=== PATIENT | female | born 1995 | race Caucasian/White ===

== ENCOUNTER 2016-06-26 12:34 | Emergency (ER) | payer MEDICAID, OTHER ==
[2016-06-26] MEDS ORDERED: LACTATED RINGERS 1,000 ML ONE (13:31)
[2016-06-26] MEDS ORDERED: ONDANSETRON 4 MG/2ML 2 ML VIAL ONE (13:31)
[2016-06-26 13:46] LABS: ABSOLUTE NEUTROPHIL COUNT 12.1 K/mm3 (1.8-7.7); BASO % 0.3 % (0.2-1.0); EOS % 0.1 % (0.9-2.9); HEMATOCRIT 38.9 % (37.0-47.0); HEMOGLOBIN 13.1 gm/l (12.0-16.0); IMM NEUT # 0.2 K/mm3 (0-0.2); IMM NEUT% 1.4 % (0-1); LYMPH # 0.8 (1.0-4.8); LYMPH % 5.7 % (15-45); MEAN CELL VOLUME 84.4 fl (81.0-99.0); MEAN CORPUSCULAR HEMOGLOBIN 28.4 pg (27.0-31.0); MEAN CORPUSCULAR HGB CONC 33.7 g/dl (33.0-37.0); MEAN PLATELET VOLUME 10.5 fl (7.4-10.4); MONO # 1.5 (0.0-0.8); MONO % 9.9 % (4-12); NEUT % 82.6 % (43-75); PLATELET COUNT 221 K/mm3 (130-400); RED CELL DISTRIBUTION WIDTH 15.3 % (11.5-14.5)
[2016-06-26 14:15] LABS: ALBUMIN 4.1 gm/dL (3.5-5.7); CALCIUM 9.8 mg/dL (8.6-10.3); MAGNESIUM 1.8 mg/dL (1.9-2.7)
[2016-06-26 14:19] LABS: URINE BILIRUBIN 1+ (NEGATIVE); URINE BLOOD 3+ (NEGATIVE); URINE GLUCOSE (UA) NEGATIVE (NEGATIVE); URINE LEUKOCYTE ESTERASE 2+ (NEGATIVE); URINE NITRITE POSITIVE (NEGATIVE); URINE PROTEIN 3+ (NEGATIVE)
[2016-06-26 14:20] LABS: URINE APPEARANCE HAZY; URINE COLOR AMBER; URINE UROBILINOGEN 4 mg/dL (0-1 mg/dl)
[2016-06-26 14:21] LABS: HCG,QUALITATIVE URINE NEGATIVE
[2016-06-26 14:35] LABS: URINE WBC 60-80 /hpf
[2016-06-26 14:36] LABS: URINE BACTERIA 3+
[2016-06-26] MEDS ORDERED: SODIUM CHLORIDE 0.9% 100 ML IV ONE (14:44)
[2016-06-26] MEDS ORDERED: CEFTRIAXONE SODIUM 1 G VIAL ONE (14:44)
[2016-06-26] MEDS ORDERED: MORPHINE SULFATE 4 MG/ML SYRINGE ONE (16:00)
== END 2016-06-26 16:30 | disposition home or self-care (01) ==
LOC: ED 12:34
DX: N12 Tubulo-interstitial nephritis, not specified as acute or chronic (principal); F17.210 Nicotine dependence, cigarettes, uncomplicated
CPT/HCPCS: 83690; 81025; 85025; 87086; 80053; 87186; 83735; 81001; 96375 ×2; 99284 ×2; 96361; 96365; J2270; J0696; J2405; J7120; J7050

== ENCOUNTER 2016-07-17 14:08 | Emergency (ER) | payer MEDICAID ==
[2016-07-17] MEDS ORDERED: IOPAMIDOL 370 (76%) IV.SOLN 150 ML IV ONE (14:09)
[2016-07-17] MEDS ORDERED: ONDANSETRON 4 MG/2ML 2 ML VIAL ONE ×2 (14:47→16:55)
[2016-07-17] MEDS ORDERED: KETOROLAC TROMETHAMINE 15 MG/ML VIAL ONE (14:48)
[2016-07-17] MEDS ORDERED: SODIUM CHLORIDE 0.9% 2,000 ML ONE (14:48)
[2016-07-17 15:12] LABS: ABSOLUTE NEUTROPHIL COUNT 3.8 K/mm3 (1.8-7.7); BASO % 0.2 % (0.2-1.0); HEMATOCRIT 39.9 % (37.0-47.0); HEMOGLOBIN 13.4 gm/l (12.0-16.0); IMM NEUT% 0.6 % (0-1); LYMPH % 19.2 % (15-45); MEAN CELL VOLUME 86.7 fl (81.0-99.0); MEAN CORPUSCULAR HEMOGLOBIN 29.1 pg (27.0-31.0); MEAN CORPUSCULAR HGB CONC 33.6 g/dl (33.0-37.0); MEAN PLATELET VOLUME 9.9 fl (7.4-10.4); MONO # 0.5 (0.0-0.8); MONO % 9.1 % (4-12); NEUT % 70.9 % (43-75); PLATELET COUNT 186 K/mm3 (130-400); RED CELL DISTRIBUTION WIDTH 15.6 % (11.5-14.5)
[2016-07-17 15:26] LABS: ALB/GLOB RATIO 1.3 (>1.0); ALBUMIN 4.5 gm/dL (3.5-5.7); CALCIUM 10.1 mg/dL (8.6-10.3)
--- NOTE | 2016-07-17 16:04 | US ---
ABDOMINAL-LIMITED COMPARISON: None HISTORY: Epigastric pain radiating to the back. FINDINGS: Gall bladder: Normal, length 6.1 cm. Wall thickness 1.6 mm. No stones or sludge. Common hepatic duct: Normal diameter 1.6 mm. Common bile duct: Normal diameter 5.1 mm. IMPRESSION: 1. Normal gallbladder and bile ducts. Report was sent to the emergency department electronic medical record system, 07/17/2016 at 16:01
[2016-07-17] MEDS ORDERED: MORPHINE SULFATE 4 MG/ML SYRINGE ONE (16:05)
[2016-07-17 16:51] LABS: URINE BILIRUBIN 1+ (NEGATIVE); URINE BLOOD 4+ (NEGATIVE); URINE GLUCOSE (UA) NEGATIVE (NEGATIVE); URINE LEUKOCYTE ESTERASE 2+ (NEGATIVE); URINE NITRITE POSITIVE (NEGATIVE); URINE PROTEIN 2+ (NEGATIVE)
[2016-07-17 17:00] LABS: URINE APPEARANCE CLOUDY; URINE COLOR YELLOW; URINE UROBILINOGEN 4 mg/dL (0-1 mg/dl)
--- NOTE | 2016-07-17 17:06 | CT ---
ABD/PELVIS W/ CON COMPARISON: Abdominal ultrasound, 07/17/2016. HISTORY: Abdominal pain. Recurrent pancreatitis. Elevated lipase. Technique: No oral contrast. Intravenous injection 100 mL Isovue 370. Using a [employer] Aquilion [address] scanner, images were obtained from the diaphragm to the floor the pelvis. An automated dose reduction technique was used to minimize patient radiation dose. Dose information: CTDIvol (mGy): 4.70 DLP(mGycm): 239.60 FINDINGS: Lung bases: Normal. Inferior mediastinum and heart: Normal. Liver: Low-attenuation. Gallbladder:Normal. Bile ducts: Normal. Pancreas: Normal enhancement. No edema. No mass or cyst. No calcifications. Spleen: Normal. Adrenal glands: Normal. Kidneys: Irregular enhancement in the lower pole left kidney. Ureters: Normal Urinary bladder: Normal. Uterus and adnexa: Normal. Blood vessels: Normal Lymph nodes: Normal Stomach: Normal Duodenum: Normal Small intestine: Normal Appendix: Normal Colon: Normal Abdominal wall and supporting musculature: Normal Bones: Normal IMPRESSION: 1. Normal appearance of the pancreas. No CT evidence of acute pancreatitis. 2. Evidence of pyelonephritis in the lower pole the left kidney. Report was sent to the emergency department electronic medical record systems 07/17/2016 at 17:08
[2016-07-17 17:07] LABS: URINE AMORPHOUS SEDIMENT FEW; URINE MUCUS 3+; URINE WBC 20-30 /hpf
[2016-07-17 17:08] LABS: URINE BACTERIA 2+
[2016-07-17] MEDS ORDERED: CEFTRIAXONE 1 GRAM DUPLEX 50 ML IV ONE (17:25)
[2016-07-17] MEDS ORDERED: SODIUM CHLORIDE 0.9% 1,000 ML ONE (17:25)
[2016-07-17 17:59] LABS: URINE BILIRUBIN NEGATIVE (NEGATIVE); URINE BLOOD 1+ (NEGATIVE); URINE GLUCOSE (UA) NEGATIVE (NEGATIVE); URINE LEUKOCYTE ESTERASE TRACE (NEGATIVE); URINE NITRITE POSITIVE (NEGATIVE); URINE PROTEIN 2+ (NEGATIVE); URINE UROBILINOGEN 1 mg/dL (0-1 mg/dl)
[2016-07-17 18:09] LABS: URINE COLOR YELLOW
[2016-07-17 18:10] LABS: URINE APPEARANCE SL CLOUDY
[2016-07-17 18:24] LABS: URINE RBC 0-2 /hpf; URINE WBC 0-2 /hpf
[2016-07-17 18:25] LABS: URINE BACTERIA 2+; URINE EPITHELIAL CELLS 0 /hpf
== END 2016-07-17 18:52 | disposition home or self-care (01) ==
LOC: ED 14:08
DX: N12 Tubulo-interstitial nephritis, not specified as acute or chronic (principal); Z87.891 Personal history of nicotine dependence
CPT/HCPCS: 83605; 83690; 82150; 84703; 85025; 87040; 87086; 80053; 87186; 81001 ×2; 74177; 76705; 96375 ×3; 96376; 99284 ×2; 96361; 96365; J2270; J1885; J2405 ×2; J7030 ×2; Q9967; J0696

== ENCOUNTER 2016-08-03 19:29 | Inpatient (IN) | payer MEDICAID ==
[2016-08-03] MEDS ORDERED: LACTATED RINGERS 1,000 ML ONE ×2 (19:42→20:57)
[2016-08-03 20:19] LABS: SPECIFIC GRAVITY 1.015 (1.001-1.030); URINE BILIRUBIN NEGATIVE (NEGATIVE); URINE BLOOD NEGATIVE (NEGATIVE); URINE GLUCOSE (UA) NEGATIVE (NEGATIVE); URINE LEUKOCYTE ESTERASE TRACE (NEGATIVE); URINE NITRITE NEGATIVE (NEGATIVE); URINE PROTEIN 2+ (NEGATIVE); URINE UROBILINOGEN NORMAL (0-1 mg/dl)
[2016-08-03 20:20] LABS: ABSOLUTE NEUTROPHIL COUNT 13.1 K/mm3 (1.8-7.7); BASO % 0.2 % (0.2-1.0); EOS % 0.3 % (0.9-2.9); HEMATOCRIT 45.7 % (37.0-47.0); HEMOGLOBIN 15.3 gm/l (12.0-16.0); IMM NEUT # 0.1 K/mm3 (0-0.2); IMM NEUT% 0.6 % (0-1); LYMPH # 2.1 (1.0-4.8); LYMPH % 13.3 % (15-45); MEAN CELL VOLUME 90.3 fl (81.0-99.0); MEAN CORPUSCULAR HEMOGLOBIN 30.2 pg (27.0-31.0); MEAN CORPUSCULAR HGB CONC 33.5 g/dl (33.0-37.0); MEAN PLATELET VOLUME 9.6 fl (7.4-10.4); MONO # 0.4 (0.0-0.8); MONO % 2.2 % (4-12); NEUT % 83.4 % (43-75); PLATELET COUNT 352 K/mm3 (130-400); RED CELL DISTRIBUTION WIDTH 15.6 % (11.5-14.5); URINE APPEARANCE HAZY; URINE COLOR YELLOW
[2016-08-03] MEDS ORDERED: ONDANSETRON 4 MG/2ML 2 ML VIAL ONE (20:21)
[2016-08-03] MEDS ORDERED: PANTOPRAZOLE SODIUM 40 MG VIAL IV ONE (20:22)
[2016-08-03] MEDS ORDERED: KETOROLAC TROMETHAMINE 15 MG/ML VIAL ONE (20:22)
[2016-08-03 20:26] LABS: URINE RBC 0-1 /hpf
[2016-08-03 20:27] LABS: URINE AMORPHOUS SEDIMENT 2+
[2016-08-03 20:28] LABS: URINE BACTERIA 2+; URINE EPITHELIAL CELLS FEW /hpf
[2016-08-03 20:35] LABS: ALB/GLOB RATIO 1.4 (>1.0); ALBUMIN 4.5 gm/dL (3.5-5.7); CALCIUM 9.8 mg/dL (8.6-10.3)
[2016-08-03 20:42] LABS: AMPHETAMINES/METHAMPHETAMINES NEGATIVE (NEGATIVE); COCAINE NEGATIVE (NEGATIVE); MARIJUANA NEGATIVE (NEGATIVE); METHADONE NEGATIVE (NEGATIVE); OPIATES NEGATIVE (NEGATIVE); TRICYCLIC ANTIDEPRESSANTS NEGATIVE (NEGATIVE)
[2016-08-03] MEDS ORDERED: METOCLOPRAMIDE HCL 5 MG/ML 2ML VIAL ONE (21:14)
[2016-08-03] MEDS ORDERED: DIPHENHYDRAMINE HCL 50 MG/1 ML VIAL ONE (21:14)
[2016-08-03] MEDS ORDERED: CEFTRIAXONE 1 GRAM DUPLEX 50 ML IV ONE (21:14)
[2016-08-03] MEDS ORDERED: MORPHINE SULFATE 4 MG/ML SYRINGE ONE (21:20)
[2016-08-03] MEDS ORDERED: MENTHOL/CETYLPYRD 1 EACH LOZENGE PO PRN (22:23)
[2016-08-03] MEDS ORDERED: LACTATED RINGERS 1,000 ML IV SCH (22:23)
[2016-08-03] MEDS ORDERED: POTASSIUM CHLORIDE 40 MEQ in SODIUM CHLORIDE 0.9% 500 ML IV ONE (22:23)
[2016-08-03] MEDS ORDERED: MAGNESIUM HYDROXIDE 30 ML UDCUP PO PRN (22:23)
[2016-08-03] MEDS ORDERED: BISACODYL 10 MG SUP PR PRN (22:23)
[2016-08-03] MEDS ORDERED: BLISTEX LIPSTICK 1 EACH TP PRN (22:23)
[2016-08-03] MEDS ORDERED: BISACODYL 5 MG TABLET.EC PO PRN (22:23)
[2016-08-03] MEDS ORDERED: SODIUM CHLORIDE 0.9% 100 ML IV PRN (22:23)
[2016-08-03] MEDS ORDERED: PUMP TUBING ONE (22:26)
[2016-08-03] MEDS ORDERED: KCL ONE (22:28)
[2016-08-03] MEDS ORDERED: SODIUM CHLOR 0.9% ONE (22:28)
[2016-08-03 22:40] VITALS: BMI 22.1
[2016-08-03] MEDS ORDERED: HYDROMORPHONE HCL 0.5 MG/0.5 ML SYRINGE ONE (23:05)
[2016-08-03] MEDS: ONDANSETRON 4 MG/2ML 2 ML VIAL IV PRN (23:08)
[2016-08-03] MEDS: NS/Potassium Chlor 20 mEq 1,000 ML IV SCH (23:09)
[2016-08-03] MEDS: HYDROMORPHONE HCL 2 MG/ML SYRINGE IV PRN (23:17)
[2016-08-03] MEDS ORDERED: PROMETHAZINE HCL 25 MG/ML VIAL ONE (23:26)
[2016-08-03] MEDS ORDERED: SODIUM CHLORIDE 0.9% 50 ML IV ONE (23:27)
[2016-08-03] MEDS: ENOXAPARIN SODIUM 40 MG/0.4 ML SYRINGE SUB-Q SCH (23:30)
[2016-08-04] MEDS: HYDROMORPHONE HCL 2 MG/ML SYRINGE IV PRN ×3 (00:35→07:43)
[2016-08-04] MEDS ORDERED: LORAZEPAM 2 MG/ML 1ML SDV IV PRN (00:51)
[2016-08-04] MEDS: PANTOPRAZOLE SODIUM 40 MG VIAL IV SCH ×2 (01:30→22:33)
[2016-08-04] MEDS: PROMETHAZINE HCL 12.5 MG in SODIUM CHLORIDE 0.9% 50 ML IM PRN (02:43)
[2016-08-04] MEDS: NS/Potassium Chlor 20 mEq 1,000 ML IV SCH (03:26)
[2016-08-04] MEDS: ONDANSETRON 4 MG/2ML 2 ML VIAL IV PRN (04:35)
[2016-08-04 05:23] LABS: ABSOLUTE NEUTROPHIL COUNT 15.7 K/mm3 (1.8-7.7); BASO % 0.1 % (0.2-1.0); HEMATOCRIT 38.6 % (37.0-47.0); HEMOGLOBIN 12.9 gm/l (12.0-16.0); IMM NEUT # 0.1 K/mm3 (0-0.2); IMM NEUT% 0.4 % (0-1); LYMPH # 0.7 (1.0-4.8); LYMPH % 4.2 % (15-45); MEAN CELL VOLUME 91.5 fl (81.0-99.0); MEAN CORPUSCULAR HEMOGLOBIN 30.6 pg (27.0-31.0); MEAN CORPUSCULAR HGB CONC 33.4 g/dl (33.0-37.0); MEAN PLATELET VOLUME 9.6 fl (7.4-10.4); MONO # 0.3 (0.0-0.8); MONO % 1.8 % (4-12); NEUT % 93.5 % (43-75); PLATELET COUNT 215 K/mm3 (130-400); RED CELL DISTRIBUTION WIDTH 15.6 % (11.5-14.5)
[2016-08-04 05:47] LABS: ALB/GLOB RATIO 1.4 (>1.0); ALBUMIN 3.3 gm/dL (3.5-5.7); CALCIUM 8.4 mg/dL (8.6-10.3)
[2016-08-04] MEDS: SODIUM CHLORIDE 0.9% 1,000 ML IV SCH ×5 (06:21→22:45)
[2016-08-04 06:58] LABS: BAND 9 % (0-10); BASOPHIL 0 % (0-1); EOSINOPHIL 0 % (1-3); LYMPHOCYTE 2 % (15-45); MONOCYTE 0 % (4-12); NEUTROPHILS 89 % (43-75); PLATELET ESTIMATE NORMAL (NORMAL); TOTAL CELLS COUNTED 100
--- NOTE | 2016-08-04 08:56 | HP ---
Jailene Kebede [id number] DATE OF ADMISSION: 08/03/2016 CHIEF COMPLAINT: Abdominal pain. 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 She has partially treated the infection twice now, but states she did not get the antibiotic filled because she could not afford it. She reports that in the last week she has developed in addition to her persistent flank pain epigastric pain which has gotten progressive worse. She has had nausea and vomiting for the last 48 hours which has been persistent. She has been unable to keep most things down during this time. She states she last drank alcohol about two days ago, but she did have alcohol in her system. She reports she has tremors and tremulousness when she goes without alcohol. She reports she has been drinking about a fifth of Vodka a day since the of her 5-month-old baby. Part of that she drank recreationally, but since the of the baby she has been drinking much more heavily. Her friends seem to think she is depressed and she is now starting to think that they may be right. REVIEW OF SYSTEMS: Has had no recent fever. She has had no recent upper respiratory symptoms. She denies any cough, dyspnea, wheezing, chest pain, or shortness of breath. She reports epigastric pain radiating to the back which is up to a 10/10. She has had nausea and vomiting with dry heaving nonstop for the last 48 hours. No hematemesis. She has had no bowel movement for about 48 hours, but has not been eating or drinking much. She denies any history of diarrhea or constipation. She has had no arthralgias. No headaches, fainting, blackouts, or seizures. She does have some burning on urination and urinary frequency off and on with bilateral flank pain off and on. PAST MEDICAL HISTORY: Significant for an emergency department visit on June 26 for vomiting. She was diagnosed with a urinary tract infection cultured E-coli and treated with Bactrim. She states she never filled the medicine because she could not afford it. She then returned on July 17, was again seen for urinary tract infection, this time diagnosed with acute pyelonephritis and treated with Keflex, again she never had the antibiotic filled. She returned today with complaints as mentioned above. Her last imaging studies were done on July 17 and at that time her pancreas appeared normal, but there was CT evidence of pyelonephritis involving the left kidney. Her lipase was mildly elevated at 283 on her last visit on July 17. She has had no prior hospitalizations. She has had a history of prior urinary tract infections. She had a uncomplicated spontaneous vaginal delivery on believe February 26. She has had no other prior pregnancies. She had no complications with her . PAST SURGICAL HISTORY: Negative. ALLERGIES: She has no known drug allergies. CURRENT MEDICATIONS: None. FAMILY HISTORY: Significant for a mother with depression. SOCIAL HISTORY: Patient drinks about a fifth of Vodka per day and has done so for the past 5 months. She smokes about a half of a pack of cigarettes per day and has done so for the past year. She has a 5-month-old baby at home. She lives with the father of the baby. She does not have a primary care provider. She reports she recently applied for [facility]. PHYSICAL EXAMINATION: VITAL SIGNS: Initially in the emergency department showed a temperature of 97.8, pulse 101, blood pressure 107/70, current heart rate is 112 with a blood pressure of 121/79, oxygen saturations are 100% on room air. Patient remains afebrile. Body mass index is 22, weight is 58.5 kg. GENERAL: This is a ill appearing female in moderate distress. HEENT: Shows generalized pallor, moist pink oral mucosa. NECK: Supple without lymphadenopathy or thyromegaly. LUNGS: Clear to auscultation bilaterally. CARDIOVASCULAR: Reveals a regular tachycardia without a murmur. ABDOMEN: Soft, nondistended with epigastric discomfort to palpation, but no masses or guarding are present. Positive bowel sounds are noted. PELVIC: Deferred. RECTAL: Deferred. EXTREMITIES: No peripheral edema. LABORATORY STUDIES: CBC shows a white count of 15.7, hemoglobin of 15.3, platelet count is 352,000, lactate is 11.2. Chemistry profile shows a sodium of 140, potassium 3.4, carbon dioxide 15, BUN 9, creatinine 0.7, glucose 88, total bilirubin 0.9, AST 67, ALT 52, amylase 206, lipase is 1522. Qualitative test was negative. Urinalysis shows specific gravity of 1.015, protein 2+, 1+ ketones, 3 to 5 white cells, 2+ bacteria. Cultures from both July 17 and June 26 both are showing you sensitive E-coli. ASSESSMENT AND PLAN: The patient has acute pancreatitis, recurrent acute pyelonephritis due to partial treatment of a chronic urinary tract infection due to E-coli. She meets criteria for severe sepsis with a marked lactic acidosis, however most of the acidosis is due to her pancreatitis.. She has nausea and vomiting, hypokalemia, and epigastric pain. She is admitted to the intermediate care unit. She will be closely monitored and aggressively hydrated with saline along with some potassium at a rate of 250 mL per hour. Follow up lactate is pending. We will get comprehensive metabolic panel in the morning along with a follow up CBC for her urinary tract infection. She will be treated with Rocephin. She will be made nothing by mouth with bowel rest, ice chips only. Further treatment and recommendations will depend on her hospital course. Venous thromboembolism is moderate. Prophylaxis has been prescribed in the form of Lovenox. For her pain she will get Dilaudid. For her nausea Phenergan and Zofran. JOB: [id number]
[2016-08-04] MEDS ORDERED: PROCHLORPERAZINE 5 MG/ML 2 ML VIAL IV ONE (09:13)
--- NOTE | 2016-08-04 09:42 | PDOC43 ---
- Subjective Chief Complaint: Abd pain Subjective: Reports Abdominal Pain (poor pain control despite dilaudid), Reports Vomiting (persists despite meds) - Objective Vital Signs Temperature 98.4 F 08/04/16 07:00 Pulse Rate 93 08/04/16 07:00 Respiratory Rate 14 08/04/16 07:00 Blood Pressure 127/72 08/04/16 07:00 O2 Saturation by Pulse Oximetry 94 08/04/16 07:00 Oxygen Delivery Method Room Air Oxygen Flow Rate 0 Intake and Output 08/03/16 08/04/16 08/05/16 06:59 06:59 06:59 Intake Total 1375 Output Total 850 Balance 525 General: Alert, Oriented x3, Cooperative, Moderate Distress HEENT: Mucous membr. moist/pink Lungs: Clear to Auscultation Bilaterally Cardiovascular: Other (reg tachy) Abdomen: Soft, Tenderness (over epigastric area), Mild Distention, No Rebounding , No Involuntary Guarding Extremities: No Edema Laboratory 08/04/16 05:13 08/04/16 05:13 08/04/16 08/03/16 05:13 23:53 RDW 15.6 H VBG Lactate 5.1 H 11.8 H Anion Gap 19 H BUN 6 L Estimated GFR 125 H Calcium 8.4 L Total Bilirubin 1.5 H AST 179 H ALT 78 H Total Protein 5.7 L Albumin 3.3 L Lipase 1735 H Current Medications: Current meds reviewed in EMR. - Problems: Assessment/Plan (1) Pancreatitis, alcoholic, acute Qualifiers: Acute pancreatitis complication: unspecified Qualifier Code: (K85.20) Alcohol induced acute pancreatitis without necrosis or infection Status: AcuteAssessment/Plan: Causing severe epigastric pain and persistent nausea with SIRS, no evidence of biliary obstruction, Abd CT performed on 07/17, lipase rising, marked lactic acidosis due to third spacing and intravascular volume depletion- cont aggressive hydration, bowel rest (2) Pyelonephritis Status: AcuteAssessment/Plan: Meets criterioa for septic shock based on lactate level but clinically consider this severe sepsis. Lactate improving. persistent partially treated infection since 07/03, likely the same pansensitive E. Coli cultured on previous visits due to noncompliance, on Rocephin, urine Cx pending - cont Rocephin await Cx results (3) Lactic acidosis Status: AcuteAssessment/Plan: multifactorial as above (4) Alcoholism Status: AcuteAssessment/Plan: CIWA precautions ordered - SS consult (5) Hyperkalemia Status: AcuteAssessment/Plan: Due to potassium in IVF - change to NS VTE Prophylaxis: Lovenox Disposition: home in 3-5 days pending improvement in Lipase, advancement of diet and urine Cx results
[2016-08-04] MEDS: DOCUSATE SODIUM 100 MG CAPSULE PO SCH ×2 (09:46→21:01)
[2016-08-04] MEDS: MORPHINE SULFATE 2 MG/ML SYRINGE IV PRN (09:46)
[2016-08-04] MEDS: LORAZEPAM 2 MG/ML 1ML SDV IV PRN ×3 (12:49→16:48)
[2016-08-04] MEDS: MORPHINE SULFATE 4 MG/ML SYRINGE IV PRN ×2 (14:51→19:13)
[2016-08-04] MEDS: CEFTRIAXONE 1 GRAM DUPLEX 1 G in Premix (D5W) 50 ml 1 EACH IV SCH (20:47)
[2016-08-04] MEDS: ENOXAPARIN SODIUM 40 MG/0.4 ML SYRINGE SUB-Q SCH (20:47)
[2016-08-05] MEDS: MORPHINE SULFATE 4 MG/ML SYRINGE IV PRN ×4 (00:45→22:02)
[2016-08-05] MEDS: SODIUM CHLORIDE 0.9% 1,000 ML IV SCH ×5 (02:54→20:30)
[2016-08-05] MEDS: MORPHINE SULFATE 2 MG/ML SYRINGE IV PRN (04:17)
[2016-08-05] MEDS: PROMETHAZINE HCL 12.5 MG in SODIUM CHLORIDE 0.9% 50 ML IM PRN (04:37)
[2016-08-05] MEDS ORDERED: PROMETHAZINE IV PER PHARMACY 1 EACH in SODIUM CHLORIDE 0.9% 50 ML IV PRN (04:43)
[2016-08-05] MEDS: LORAZEPAM 2 MG/ML 1ML SDV IV PRN (05:07)
[2016-08-05 06:03] LABS: ABSOLUTE NEUTROPHIL COUNT 10.3 K/mm3 (1.8-7.7); BASO % 0.2 % (0.2-1.0); HEMATOCRIT 36.2 % (37.0-47.0); HEMOGLOBIN 11.6 gm/l (12.0-16.0); IMM NEUT # 0.1 K/mm3 (0-0.2); IMM NEUT% 0.9 % (0-1); LYMPH # 0.9 (1.0-4.8); LYMPH % 7.8 % (15-45); MEAN CELL VOLUME 94.5 fl (81.0-99.0); MEAN CORPUSCULAR HEMOGLOBIN 30.3 pg (27.0-31.0); MEAN PLATELET VOLUME 10.3 fl (7.4-10.4); MONO # 0.3 (0.0-0.8); MONO % 2.9 % (4-12); NEUT % 88.2 % (43-75); PLATELET COUNT 110 K/mm3 (130-400); RED CELL DISTRIBUTION WIDTH 16.4 % (11.5-14.5)
[2016-08-05 06:27] LABS: CALCIUM 7.2 mg/dL (8.6-10.3)
[2016-08-05] MEDS: DOCUSATE SODIUM 100 MG CAPSULE PO SCH ×2 (08:45→21:06)
[2016-08-05] MEDS: ONDANSETRON 4 MG/2ML 2 ML VIAL IV PRN ×2 (11:07→18:57)
--- NOTE | 2016-08-05 11:53 | PDOC43 ---
- Subjective Chief Complaint: Abd pain patient asleep but arousable. Will follow commands Subjective: Reports Other (arousable but sedated) - Objective Vital Signs Temperature 100.5 F 08/05/16 08:00 Pulse Rate 127 08/05/16 08:00 Respiratory Rate 18 08/05/16 11:00 Blood Pressure 121/87 08/05/16 08:00 O2 Saturation by Pulse Oximetry 98 08/05/16 08:00 Oxygen Delivery Method Room Air Oxygen Flow Rate 0 Intake and Output 08/03/16 08/04/16 08/05/16 23:59 23:59 23:59 Intake Total 4367 3276 Output Total 1225 1200 Balance 3142 2076 General: Cooperative, No Acute Distress HEENT: Atraumatic, PERRLA, EOMI, Mucous membr. moist/pink Lungs: Clear to Auscultation Bilaterally, Normal Air Movement Cardiovascular: Regular Rate and Rhythm, Normal S1, Normal S2, Other ( tachycardic) Abdomen: Soft, Tenderness, No Rigid, No Rebounding, No Mild Distention Extremities: No Cyanosis, No Edema, No Tenderness Peripheral Pulses: Radial (L): 2+, Radial (R): 2+, Dorsalis Pedis (L): 1+, Dorsalis Pedis (R): 1+ Neurological: Other (asleep but arousable, follows commands) Laboratory 08/05/16 05:30 08/05/16 05:30 08/05/16 05:30 RBC 3.83 L MCHC 32.0 L RDW 16.4 H BUN 4 L Estimated GFR 125 H Calcium 7.2 L Lipase 1011 H Current Medications: Current meds reviewed in EMR. - Problems: Assessment/Plan (1) Alcoholism Status: AcuteAssessment/Plan: CIWA precautions ordered - SS consult No evidence of withdrawal but remains tachycardic. She had hallucinations yesterday. 08/04 Supplementation of vitamins (2) Hyperkalemia Status: AcuteAssessment/Plan: Due to potassium in IVF - change to NS Resolved (3) Lactic acidosis Status: AcuteAssessment/Plan: multifactorial as above Improving, 5.1 this morning. Will monitor (4) Pancreatitis, alcoholic, acute Qualifiers: Acute pancreatitis complication: unspecified Qualifier Code: (K85.20) Alcohol induced acute pancreatitis without necrosis or infection Status: AcuteAssessment/Plan: Causing severe epigastric pain and persistent nausea with SIRS, no evidence of biliary obstruction, Abd CT performed on 07/17, lipase rising, marked lactic acidosis due to third spacing and intravascular volume depletion- cont aggressive hydration, bowel rest Improving, 1011 from 1522 this morning. Contributing to tachycardia and lactic acidosis (5) Pyelonephritis Status: AcuteAssessment/Plan: Meets criteria for septic shock based on lactate level but clinically consider this severe sepsis. Lactate improving. persistent partially treated infection since 07/03, likely the same pansensitive E. Coli cultured on previous visits due to noncompliance, on Rocephin, urine Cx pending - cont Rocephin await Cx results Contributing to elevated lactate and tachycardia (6) Thrombocytopenia Status: AcuteAssessment/Plan: multifactorial including dilution from IVF, alcohol abuse. Monitor (7) Anemia Qualifiers: Anemia type: unspecified type Qualifier Code: (D64.9) Anemia, unspecified Status: AcuteAssessment/Plan: multifactorial including IVF dilution. Monitor (8) Tachycardia Status: AcuteAssessment/Plan: Multifactorial including alcohol withdrawals, pancreatitis and pain, pylonephritis VTE Prophylaxis: Lovenox Disposition: home in 3-5 days pending improvement in Lipase, advancement of diet and urine Cx results
[2016-08-05] MEDS: MULTIVITAMINS 10 ML, FOLIC ACID 2 MG, MAGNESIUM SULFATE 1 G/2 ML 2 G, THIAMINE HCL 100 ... IV SCH ×5 (12:00)
[2016-08-05] MEDS: PANTOPRAZOLE SODIUM 40 MG VIAL IV SCH (21:00)
[2016-08-05] MEDS: ENOXAPARIN SODIUM 40 MG/0.4 ML SYRINGE SUB-Q SCH (21:00)
[2016-08-05] MEDS: CEFTRIAXONE 1 GRAM DUPLEX 1 G in Premix (D5W) 50 ml 1 EACH IV SCH (21:01)
[2016-08-05] MEDS: PROMETHAZINE HCL 12.5 MG in SODIUM CHLORIDE 0.9% 50 ML IV PRN (23:38)
[2016-08-06] MEDS: LORAZEPAM 2 MG/ML 1ML SDV IV PRN (00:40)
[2016-08-06] MEDS: MORPHINE SULFATE 2 MG/ML SYRINGE IV PRN ×4 (02:28→19:50)
[2016-08-06] MEDS: ONDANSETRON 4 MG/2ML 2 ML VIAL IV PRN (03:32)
[2016-08-06] MEDS: SODIUM CHLORIDE 0.9% 1,000 ML IV SCH (03:35)
[2016-08-06 05:41] LABS: HEMATOCRIT 33.5 % (37.0-47.0); HEMOGLOBIN 11.3 gm/l (12.0-16.0); MEAN CELL VOLUME 90.3 fl (81.0-99.0); MEAN CORPUSCULAR HEMOGLOBIN 30.5 pg (27.0-31.0); MEAN CORPUSCULAR HGB CONC 33.7 g/dl (33.0-37.0); RED CELL DISTRIBUTION WIDTH 15.2 % (11.5-14.5)
[2016-08-06 05:54] LABS: ALB/GLOB RATIO 1.3 (>1.0); ALBUMIN 2.7 gm/dL (3.5-5.7); CALCIUM 7.3 mg/dL (8.6-10.3); MAGNESIUM 1.6 mg/dL (1.9-2.7)
[2016-08-06] MEDS ORDERED: ACETAMINOPHEN 500 MG TABLET PO PRN (08:01)
[2016-08-06] MEDS: DOCUSATE SODIUM 100 MG CAPSULE PO SCH ×2 (08:29→20:52)
[2016-08-06] MEDS: SODIUM CHLOR 0.9% w 40mEq KCL 1,000 ML IV SCH ×2 (08:30→19:36)
--- NOTE | 2016-08-06 08:32 | PDOC43 ---
- Subjective Chief Complaint: Abd pain Patient awake and alert this morning. She says her abdominal is worse today. She has lightheadedness when sitting up but resolves when she lays down. She is anxious to leave the hospital, "tired of being in this box". Subjective: Reports Pain Tolerable, Reports Abdominal Pain, Reports Nausea, Reports Fever, Denies Tolerating Diet Well, Denies Adequate Oral Intake, Denies Shortness of Breath, Denies Cough, Denies Chest Pain, Denies Vomiting - Objective Vital Signs Temperature 101.7 F 08/06/16 07:23 Pulse Rate 128 08/06/16 07:23 Respiratory Rate 19 08/06/16 07:23 Blood Pressure 125/83 08/06/16 07:23 O2 Saturation by Pulse Oximetry 97 08/06/16 07:23 Oxygen Delivery Method Room Air Oxygen Flow Rate 0 Intake and Output 08/04/16 08/05/16 08/06/16 23:59 23:59 23:59 Intake Total 4367 5574 1992 Output Total 1225 2875 2852 Balance 3142 2699 -860 General: Alert, Oriented x3, Cooperative, No Acute Distress HEENT: Atraumatic, PERRLA, EOMI, Mucous membr. moist/pink Lungs: Clear to Auscultation Bilaterally, Normal Air Movement Cardiovascular: Regular Rate and Rhythm, Normal S1, Normal S2, Other ( tachycardic) Abdomen: Soft, Mild Distention, No Rigid, No Tenderness, No Rebounding Extremities: No Cyanosis, No Edema, No Tenderness Peripheral Pulses: Radial (L): 2+, Radial (R): 2+ Neurological: Normal Speech Psych/Mental Status: Normal Mood Laboratory 08/06/16 05:15 08/06/16 05:15 08/06/16 08/05/16 05:15 12:05 RBC 3.71 L RDW 15.2 H BUN 4 L Estimated GFR 200 H Calcium 7.3 L Magnesium 1.6 L Total Bilirubin 1.3 H AST 73 H C-Reactive Protein 9.0 H 7.9 H Total Protein 4.8 L Albumin 2.7 L Globulin 2.1 L Lipase 309 H Current Medications: Current meds reviewed in EMR. - Problems: Assessment/Plan (1) Alcoholism Status: AcuteAssessment/Plan: CIWA precautions ordered - SS consult No evidence of withdrawal but remains tachycardic. She had hallucinations yesterday. 08/05 Supplementation of vitamins (2) Hyperkalemia Status: AcuteAssessment/Plan: Due to potassium in IVF - change to NS Resolved (3) Lactic acidosis Status: AcuteAssessment/Plan: multifactorial as above Improving, 5.1 this morning. Will monitor Resolved (4) Pancreatitis, alcoholic, acute Qualifiers: Acute pancreatitis complication: unspecified Qualifier Code: (K85.20) Alcohol induced acute pancreatitis without necrosis or infection Status: AcuteAssessment/Plan: Causing severe epigastric pain and persistent nausea with SIRS, no evidence of biliary obstruction, Abd CT performed on 07/17, lipase rising, marked lactic acidosis due to third spacing and intravascular volume depletion- cont aggressive hydration, bowel rest Improving, 1011 from 1522 this morning. Contributing to tachycardia and lactic acidosis Laboratory values improving with lipase 309 and CRP increasing 7.9 to 9.0 with complaints of abdominal pain but she does want to eat. Monitor (5) Pyelonephritis Status: AcuteAssessment/Plan: Meets criteria for septic shock based on lactate level but clinically consider this severe sepsis. Lactate improving. persistent partially treated infection since 07/03, likely the same pansensitive E. Coli cultured on previous visits due to noncompliance, on Rocephin, urine Cx pending - cont Rocephin await Cx results Contributing to elevated lactate and tachycardia Continues to be febrile with tachycardia and increasing CRP. Checking renal US for abscess development (6) Thrombocytopenia Status: AcuteAssessment/Plan: multifactorial including dilution from IVF, alcohol abuse. Monitor (7) Anemia Qualifiers: Anemia type: unspecified type Qualifier Code: (D64.9) Anemia, unspecified Status: AcuteAssessment/Plan: multifactorial including IVF dilution. Monitor Stable overnight (8) Tachycardia Status: AcuteAssessment/Plan: Multifactorial including alcohol withdrawals, pancreatitis and pain, pylonephritis (9) Hypokalemia due to inadequate potassium intake Status: AcuteAssessment/Plan: due to poor PO intake, supplement VTE Prophylaxis: Lovenox Disposition: home in 3-5 days pending improvement in Lipase, advancement of diet and urine Cx results
--- NOTE | 2016-08-06 11:16 | US ---
RENALS/BLADDER COMPARISON: CT abdomen and pelvis with contrast, 07/17/2016 HISTORY: 21 years old. Follow-up pyelonephritis of the lower pole the left kidney. Check for abscess. FINDINGS: Right kidney: Normal, length 11.9 x 5.9 x 5.4 cm. Cortical thickness 8 and 9. Resistive index 0.44. No stone, hydronephrosis, mass, or cyst. Left kidney: Normal size, 13.2 x 4.4 x 5.3 cm. Cortical thickness 8 mm. Resistive index 0.44. At the upper pole, 2 mm diameter fluid. IMPRESSION: 1. Normal left kidney. No abscess. Small slip of fluid at the upper pole. 2. Normal right kidney.
[2016-08-06] MEDS: MULTIVITAMINS 10 ML, FOLIC ACID 2 MG, MAGNESIUM SULFATE 1 G/2 ML 2 G, THIAMINE HCL 100 ... IV SCH ×5 (12:09)
[2016-08-06] MEDS: CEFTRIAXONE 1 GRAM DUPLEX 1 G in Premix (D5W) 50 ml 1 EACH IV SCH (20:50)
[2016-08-06] MEDS: PANTOPRAZOLE SODIUM 40 MG VIAL IV SCH (20:50)
[2016-08-06] MEDS: MORPHINE SULFATE 4 MG/ML SYRINGE IV PRN ×2 (21:50→23:57)
[2016-08-07] MEDS: SODIUM CHLOR 0.9% w 40mEq KCL 1,000 ML IV SCH ×2 (00:58→15:53)
[2016-08-07] MEDS: MORPHINE SULFATE 4 MG/ML SYRINGE IV PRN ×5 (01:59→15:42)
[2016-08-07 05:50] LABS: HEMATOCRIT 30.6 % (37.0-47.0); HEMOGLOBIN 10.5 gm/l (12.0-16.0); MEAN CELL VOLUME 89.7 fl (81.0-99.0); MEAN CORPUSCULAR HEMOGLOBIN 30.8 pg (27.0-31.0); MEAN CORPUSCULAR HGB CONC 34.3 g/dl (33.0-37.0)
[2016-08-07 06:14] LABS: ALB/GLOB RATIO 1.2 (>1.0); ALBUMIN 2.8 gm/dL (3.5-5.7); CALCIUM 7.5 mg/dL (8.6-10.3)
[2016-08-07 06:16] LABS: C-REACTIVE PROTEIN 11.4 mg/dl (<1.0)
[2016-08-07] MEDS ORDERED: HYDROCODONE/ACETAMINOPHEN 5/325MG TABLET ONE ×2 (09:41)
[2016-08-07] MEDS ORDERED: IOPAMIDOL 370 (76%) 100 ML VIAL IV ONE (12:34)
[2016-08-07] MEDS: DOCUSATE SODIUM 100 MG CAPSULE PO SCH ×2 (12:37→20:58)
[2016-08-07] MEDS ORDERED: MAGNESIUM SULFATE 2 G/50 ML 2 G in Premix (Water) 50 ml 1 EACH IV ONE (12:42)
[2016-08-07] MEDS ORDERED: POTASSIUM CHLORIDE 40 MEQ in SODIUM CHLORIDE 0.9% 500 ML IV ONE (13:00)
[2016-08-07] MEDS: ONDANSETRON 4 MG/2ML 2 ML VIAL IV PRN ×2 (13:14→18:41)
--- NOTE | 2016-08-07 13:51 | PDOC43 ---
- Subjective Chief Complaint: Abd pain Subjective: Reports Abdominal Pain (still requiring IV morphine), Reports Vomiting (difficult to control and on multiple meds), Reports Fever (improveing) - Objective Vital Signs Temperature 99.2 F 08/07/16 07:00 Pulse Rate 108 08/07/16 07:00 Respiratory Rate 18 08/07/16 07:00 Blood Pressure 124/85 08/07/16 07:00 O2 Saturation by Pulse Oximetry 97 08/07/16 07:00 Oxygen Delivery Method Room Air Oxygen Flow Rate 0 Intake and Output 08/06/16 08/07/16 08/08/16 06:59 06:59 06:59 Intake Total 4290 3730 Output Total 4501 9220 2049 Balance -237 -825 -2049 General: Alert, Oriented x3, Cooperative, Moderate Distress HEENT: Mucous membr. moist/pink Lungs: Diminished at Bases Cardiovascular: Other (reg tachycardia) Abdomen: Soft, Tenderness (over epigastric area is improving), Normal Bowel Sounds, Mild Distention, No Rebounding, No Involuntary Guarding Laboratory 08/07/16 05:30 08/07/16 05:30 08/07/16 05:30 RBC 3.41 L RDW 15.0 H BUN 3 L Estimated GFR 278 H Calcium 7.5 L Total Bilirubin 1.2 H C-Reactive Protein 11.4 H Total Protein 5.1 L Albumin 2.8 L Lipase 106 H Current Medications: Current meds reviewed in EMR. - Problems: Assessment/Plan (1) Pancreatitis, alcoholic, acute Qualifiers: Acute pancreatitis complication: unspecified Qualifier Code: (K85.20) Alcohol induced acute pancreatitis without necrosis or infection Status: AcuteAssessment/Plan: Causing severe epigastric pain and persistent nausea with SIRS, no evidence of biliary obstruction, Abd CT performed on 07/17, lipase rising, marked lactic acidosis due to third spacing and intravascular volume depletion- cont aggressive hydration, bowel rest Improving, Lipase down to 106 this morning. Contributing to tachycardia and lactic acidosis Cont. complaints of abdominal pain but she does want to eat. work to advance diet and manage pain with oral drugs (2) Pyelonephritis Status: AcuteAssessment/Plan: Meets criteria for septic shock based on lactate level but clinically consider this severe sepsis. Lactate improving. persistent partially treated infection since 07/03, likely the same pansensitive E. Coli cultured on previous visits due to noncompliance, on Rocephin, urine Cx negative but was partially treated - cont Rocephin, change to PO in 1-2 days Contributing to elevated lactate and tachycardia No abcess on renal ultrasound, Abd CT is reassuring (3) Lactic acidosis Status: AcuteAssessment/Plan: Resolved (4) Alcoholism Status: AcuteAssessment/Plan: CIWA precautions ordered - SS consult No evidence of withdrawal but remains tachycardic. She had hallucinations on Supplementation of vitamins (5) Hypokalemia due to inadequate potassium intake Status: AcuteAssessment/Plan: due to poor PO intake, supplement (6) Pleural effusion associated with pancreatitis Status: AcuteAssessment/Plan: due to IVF and third spacing, not causing symptoms-reduce IVF VTE Prophylaxis: Lovenox Disposition: home in 3-5 days pending improvement in Lipase, advancement of diet and control of emesis
[2016-08-07] MEDS ORDERED: IV START KIT ONE (15:18)
[2016-08-07] MEDS: MULTIVITAMINS 10 ML, FOLIC ACID 2 MG, MAGNESIUM SULFATE 1 G/2 ML 2 G, THIAMINE HCL 100 ... IV SCH ×5 (17:41)
[2016-08-07] MEDS: HYDROCODONE/ACETAMINOPHEN 5/325MG TABLET PO PRN (18:41)
[2016-08-07] MEDS: PANTOPRAZOLE SODIUM 40 MG VIAL IV SCH (20:58)
[2016-08-07] MEDS: CEFTRIAXONE 1 GRAM DUPLEX 1 G in Premix (D5W) 50 ml 1 EACH IV SCH (20:58)
[2016-08-07] MEDS: MORPHINE SULFATE 2 MG/ML SYRINGE IV PRN (21:57)
--- NOTE | 2016-08-07 22:02 | CT ---
Exam Type: ABD/PELVIS W/ CON Date and Time: 08/07/2016 12:00 AM Clinical information: Pancreatitis. Fever. Comparison: 07/17/2016 Technique: Contiguous axial 4 mm images were obtained from the lung bases through the pelvis after the uneventful IV administration of 100 cc of Isovue-370. Sagittal and coronal reformations with high resolution lung algorithm images were also obtained at this time. CT DI: 6.2 DLP 350.1 FINDINGS: Lung base : New bilateral large effusions are present with associated compressive atelectasis. Underlying pneumonia cannot be excluded. Visualized heart:There is no pericardial effusion. LIVER: Diffuse fatty infiltration to the liver is again identified with sparing along the gallbladder fossa. BILE DUCTS: normal caliber. GALLBLADDER: No calcified gallstones. Normal caliber wall. PANCREAS: Overall there is a decreased amount of enhancement to the pancreas in comparison to prior examination. Additionally there pancreas appears expanded with peripancreatic fat stranding and fluid compatible with the patient's known pancreatitis. No definite focal areas of necrosis are present. Splenic vein and artery are normal. No pseudocyst. SPLEEN: within normal limits. ADRENALS: within normal limits. KIDNEYS: Increasing striations are noted to the left kidney, which has progressed since prior examination. Findings are worrisome for underlying pyelonephritis. Right kidney is unremarkable. Stomach and small BOWEL: Normal caliber. Large bowel: Air and stool are noted within the large bowel. Appendix is not visualized though secondary signs of appendicitis are not seen. LYMPH NODES: No enlarged mesenteric lymph nodes. PERITONEUM: Scattered fluid is noted throughout the abdomen and pelvis. VESSELS: within normal limits RETROPERITONEUM: within normal limits. ABDOMINAL WALL: within normal limits. Bladder: Small pocket of gas is present within the urinary bladder likely relating to recent instrumentation. Gas-forming organisms could have a similar appearance and should be considered in the absence of instrumentation history. Uterus and adnexa: Normal. BONES: within normal limits. IMPRESSION: Worsening striations involving the left kidney worrisome for pyelonephritis in comparison to prior study. Additionally, there is decreased enhancement with expansion of the pancreas with increasing peripancreatic inflammatory change and fluid. Ascites does extend throughout the abdomen and pelvis. Findings are compatible with the patient's known pancreatitis, without evidence of complications. Other incidental findings as above. Findings were called to Dr. Rodriguez at approximately 1235 hours on 08/07/2016.
[2016-08-08] MEDS: MORPHINE SULFATE 2 MG/ML SYRINGE IV PRN ×2 (01:34→04:33)
[2016-08-08] MEDS: ONDANSETRON 4 MG/2ML 2 ML VIAL IV PRN (01:34)
[2016-08-08] MEDS: LORAZEPAM 2 MG/ML 1ML SDV IV PRN (04:11)
[2016-08-08] MEDS: PROMETHAZINE HCL 12.5 MG in SODIUM CHLORIDE 0.9% 50 ML IV PRN (04:33)
[2016-08-08 05:46] LABS: CALCIUM 8.2 mg/dL (8.6-10.3)
[2016-08-08] MEDS ORDERED: POTASSIUM CHLORIDE 40 MEQ in SODIUM CHLORIDE 0.9% 500 ML IV ONE (07:45)
[2016-08-08] MEDS ORDERED: PROMETHAZINE HCL 25 MG TABLET PO PRN (08:00)
[2016-08-08] MEDS: DOCUSATE SODIUM 100 MG CAPSULE PO SCH ×2 (08:05→21:22)
--- NOTE | 2016-08-08 08:07 | PDOC43 ---
- Subjective Chief Complaint: Abd pain Subjective: Reports Abdominal Pain (still needing morphine on occassion), Reports Vomiting (persists with poor PO intake), Denies Fever - Objective Vital Signs Temperature 99.6 F 08/08/16 06:57 Pulse Rate 107 08/08/16 06:57 Respiratory Rate 18 08/08/16 06:59 Blood Pressure 119/80 08/08/16 06:57 O2 Saturation by Pulse Oximetry 99 08/08/16 06:57 Oxygen Delivery Method Room Air Oxygen Flow Rate 0 Intake and Output 08/07/16 08/08/16 08/09/16 06:59 06:59 06:59 Intake Total 3730 2828 Output Total 4555 3600 Balance -825 -772 General: Alert, Oriented x3, Cooperative, Mild Distress HEENT: Mucous membr. moist/pink Lungs: Diminished at Bases Cardiovascular: Regular Rate and Rhythm Abdomen: Soft, Tenderness (persists over epigastric area), Normal Bowel Sounds, Non-Distended, No Rebounding, No Involuntary Guarding Extremities: No Edema Laboratory 08/07/16 05:30 08/08/16 05:22 08/08/16 05:22 BUN 3 L Estimated GFR 278 H Calcium 8.2 L Current Medications: Current meds reviewed in EMR. - Problems: Assessment/Plan (1) Pancreatitis, alcoholic, acute Qualifiers: Acute pancreatitis complication: unspecified Qualifier Code: (K85.20) Alcohol induced acute pancreatitis without necrosis or infection Status: AcuteAssessment/Plan: Causing severe epigastric pain and persistent nausea with SIRS, no evidence of biliary obstruction, Abd CT performed on 08/07 shows no complications, lipase improved, marked lactic acidosis due to third spacing and intravascular volume depletion- Improving, Lipase down to 106 this morning. Contributing to tachycardia and lactic acidosis Cont. complaints of abdominal pain but she does want to eat. work to advance diet and manage pain with oral drugs (2) Pyelonephritis Status: AcuteAssessment/Plan: Meets criteria for septic shock based on lactate level but clinically consider this severe sepsis. Lactate improving. persistent partially treated infection since 07/03, likely the same pansensitive E. Coli cultured on previous visits due to noncompliance, on Rocephin, urine Cx negative but was partially treated - cont Rocephin, change to PO in 1-2 days Contributing to elevated lactate and tachycardia No abcess on renal ultrasound, Abd CT is reassuring (3) Alcoholism Status: AcuteAssessment/Plan: CIWA precautions ordered - SS consult No evidence of withdrawal but remains tachycardic. She had hallucinations on Supplementation of vitamins (4) Hypokalemia due to inadequate potassium intake Status: AcuteAssessment/Plan: due to poor PO intake, supplement (5) Pleural effusion associated with pancreatitis Status: AcuteAssessment/Plan: due to IVF and third spacing, not causing symptoms-reduce IVF VTE Prophylaxis: Lovenox Disposition: home in 1-3 days pending improvement in Lipase, advancement of diet and control of emesis
[2016-08-08] MEDS: ONDANSETRON 4 MG ODT TAB PO PRN ×2 (08:48→23:21)
[2016-08-08] MEDS: HYDROCODONE/ACETAMINOPHEN 5/325MG TABLET PO PRN ×4 (09:20→21:22)
[2016-08-08] MEDS: CEFTRIAXONE 1 GRAM DUPLEX 1 G in Premix (D5W) 50 ml 1 EACH IV SCH (21:21)
[2016-08-08] MEDS: PANTOPRAZOLE SODIUM 40 MG VIAL IV SCH (21:22)
[2016-08-09 05:55] LABS: CALCIUM 8.5 mg/dL (8.6-10.3)
[2016-08-09] MEDS: HYDROCODONE/ACETAMINOPHEN 5/325MG TABLET PO PRN ×2 (06:52→11:49)
[2016-08-09] MEDS ORDERED: SODIUM CHLOR 0.9% w 40mEq KCL 1,000 ML IV SCH (06:53)
[2016-08-09 06:54] VITALS: BP 117/69
[2016-08-09] MEDS ORDERED: PUMP TUBING ONE (07:10)
[2016-08-09] MEDS: DOCUSATE SODIUM 100 MG CAPSULE PO SCH (08:15)
[2016-08-09] MEDS: POTASSIUM CHLORIDE 8 MEQ TABLET.DR PO SCH ×3 (08:15→11:49)
[2016-08-09] MEDS: ONDANSETRON 4 MG ODT TAB PO PRN (09:48)
[2016-08-09] MEDS ORDERED: PROMETHAZINE HCL 25 MG SUP PR PRN (09:58)
[2016-08-09] MEDS ORDERED: POTASSIUM CHLORIDE 40 MEQ in SODIUM CHLORIDE 0.9% 500 ML IV ONE (10:09)
--- NOTE | 2016-08-09 13:58 | DS ---
JOSÉ MANUEL [place] [id number] DATE OF ADMISSION: 08/03/2016 DATE OF DISCHARGE: 08/09/2016 DISCHARGE DIAGNOSIS: Acute pancreatitis secondary to alcohol abuse. OTHER DIAGNOSES: Include: 1. Partially treated acute pyelonephritis with Escherichia coli most likely associated with severe sepsis. 2. 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 3. Hypokalemia. 4. Bilateral pleural effusions secondary to acute pancreatitis and fluid overload. 5. Epigastric abdominal pain. 6. Persistent nausea, and vomiting. SUMMARY OF ADMISSION AND HOSPITAL COURSE: The patient is a 21-year-old female who presented with complaints of epigastric abdominal pain. She also had been treated partially for a urinary tract infection twice in the last 60 days, the last time was on 07/17/[address] evidence of pyelonephritis. However, she did not get her prescriptions filled. On her presentation, she had an elevated white blood cell count at 15,000 and bacteruria along with some flank pain. She reported that her abdominal pain symptoms came on approximately a week prior to arrival in the emergency department along with flank pain, and nausea with vomiting. She also admitted to drinking a fifth of vodka daily over the past 5 months. On her work up in the emergency department, she was found to have an amylase elevated at 206, and a lipase elevated at 1522. She had imaging of her abdomen done on 07/17/[address] evidence of a left sided pyelonephritis at that time. Repeat imaging was not performed. She was referred to the Hospitalist service for admission. She was initially placed in the intermediate care unit due to borderline blood pressures. She was aggressively hydrated. She had a markedly elevated lactate on admission of 11.2, left to be primarily due to her pancreatitis and not from her infection. With hydration, her lactate did eventually normalize. Her lipase slowly improved with bowel rest and aggressive hydration. During her stay, she did develop symptoms of hallucinations and tachycardia felt to be due to alcohol withdrawal, and was treated with Ativan. Her stay was prolonged by persistent severe abdominal pain and persistent vomiting requiring parenteral treatment. By 08/09/2016, she was felt to be medically stable for discharge. During her stay, she was treated with IV Rocephin daily. PHYSICAL EXAM: VITAL SIGNS: Vital signs at discharged showed body mass index of 22.3, a weight of 59 kg, temperature 98.9, pulse 103, blood pressure 117/69, respirations 18, oxygen saturation is 100% on room air. GENERAL: This is a well-developed, well-nourished female in no acute distress. HEENT: Unremarkable. NECK: Supple without lymphadenopathy, or thyromegaly. LUNGS: Clear to auscultation bilaterally. CARDIOVASCULAR: Exam reveals a mild regular tachycardia without a murmur. ABDOMEN: Reveals discomfort over the epigastric area, no rebound, or guarding. Positive bowel sounds. EXTREMITIES: Shows no peripheral edema. LABORATORY STUDIES: Laboratory studies on the day of discharge: Sodium was 131, potassium 3.3, BUN 5, creatinine 0.3, and glucose 98. CBC showed a white count of 10.1, hemoglobin of 10.5 and a platelet count of 96,000. Her urine culture did not grow any organisms; however, this was felt to be due to her partial treatment prior to admission. INSTRUCTIONS: She has been scheduled a follow up appointment with Dr. Melissa Dasilva on 08/17/2016 at 3:20 p.m. She was seen by our pediatric social worker and given referrals to outpatient drug and alcohol cessation resources. DISCHARGE MEDICATIONS: She is prescribed: 1. Bactrim DS twice daily for 10 days. 2. Promethazine 25 mg tablets 1 every 4 hours as needed for nausea. 3. Promethazine 25 mg suppositories 1 as needed every 4 hours if she is unable to take down the pills. 4. Zofran orally dissolving tablets 4 mg every 4 hours as needed for nausea, 12 pills no refills. 5. Also for pain, [place] 1 to 2 tablets every 4 hours as needed for pain, 25 pills no refills. MARV/ifeanyi Cc: Dr. Melissa Dasilva
== END 2016-08-09 13:45 | disposition home or self-care (01) | DRG 438 ==
LOC: ED 19:29 → ICU 21:10
PROVIDERS: ADMIT Family Medicine; ATTEND Family Medicine
DX: K85.20 Alcohol induced acute pancreatitis without necrosis or infection (principal); R65.20 Severe sepsis without septic shock; N10 Acute pyelonephritis; F10.231 Alcohol dependence with withdrawal delirium; J90 Pleural effusion, not elsewhere classified; E87.2 Acidosis; B96.20 Unspecified Escherichia coli [E. coli] as the cause of diseases classified elsewhere; E87.5 Hyperkalemia; D69.6 Thrombocytopenia, unspecified; D64.9 Anemia, unspecified; R00.0 Tachycardia, unspecified